=== PATIENT | male | born 1980 | race Caucasian/White ===

== ENCOUNTER 2018-10-23 21:48 | Emergency (ER) | payer BC ==
[~2018-10-23] VITALS: Ht 182.9 cm; Wt 96.6 kg
[2018-10-23 22:05] VITALS: Ht 182.9 cm; Wt 96.6 kg
[2018-10-23 23:23] VITALS: BP 163/120
== END 2018-10-23 23:23 | disposition home or self-care (01) ==
LOC: ED 21:48
DX: S86.912A Strain of unspecified muscle(s) and tendon(s) at lower leg level, left leg, initial encounter (principal); Z98.890 Other specified postprocedural states; X58.XXXA Exposure to other specified factors, initial encounter; Y93.89 Activity, other specified; Y92.89 Other specified places as the place of occurrence of the external cause; Y99.8 Other external cause status